=== PATIENT | female | born 1935 | race Caucasian/White ===

== ENCOUNTER 2024-02-23 02:59 | Inpatient (IN) | payer OTHER, MEDICARE ==
[2024-02-23] MEDS ORDERED: ACETAMINOPHEN 325 MG TABLET (FP) ONE ×2 (04:00→04:05)
[2024-02-23] MEDS ORDERED: LIDOCAINE 4% PATCH TP ONE (04:01)
[2024-02-23] MEDS: LIDOCAINE 4% PATCH TP ONE (04:06)
[2024-02-23] MEDS: ACETAMINOPHEN 500 MG TABLET (FP) PO ONE (04:06)
[2024-02-23 04:47] LABS: HEMATOCRIT 39.9 % (32.4-45.2); HEMOGLOBIN 13.7 GM/dL (10.7-15.3); MCH 30.3 pg (25.7-33.7); MCHC 34.3 g/dl (32.0-36.0); MEAN CELL VOLUME 88.3 fl (80-96); MEAN PLT VOLUME 9.5 fl (7.5-11.1); PLATELET COUNT 101 10^3/uL (134-434); RBC 4.52 M/mm3 (3.60-5.2); RDW 14.2 % (11.6-15.6); WHITE BLOOD COUNT 8.4 K/mm3 (4.0-10.0)
[2024-02-23 05:03] LABS: POTASSIUM 4.4 mmol/L (3.5-5.1)
[2024-02-23 05:05] LABS: ALBUMIN 3.9 g/dl (3.4-5.0); BLOOD UREA NITROGEN 18.7 mg/dL (7-18); CALCIUM 9.9 mg/dL (8.5-10.1)
[2024-02-23 05:08] LABS: CREATININE 0.8 mg/dL (0.55-1.3)
[2024-02-23 05:10] LABS: TOT PROT 7.2 g/dl (6.4-8.2)
[2024-02-23] MEDS: VALSARTAN 80 MG TABLET PO ONE (05:43)
[2024-02-23] MEDS: LIDOCAINE PATCH REMOVAL MC ONE (05:43)
[2024-02-23] MEDS ORDERED: VALSARTAN 80 MG TABLET ONE (05:50)
[2024-02-23 06:36] LABS: ANISOCYTOSIS 3+; MACROCYTOSIS 0; OVALOCYTE 1+
[2024-02-23] MEDS: LOSARTAN POTASSIUM 50 MG TABLET PO SCH (10:37)
[2024-02-23] MEDS: ASPIRIN COATED 81 MG TABLET.EC PO SCH (10:37)
[2024-02-23] MEDS: ATENOLOL 25 MG TABLET (FP) PO SCH (10:37)
[2024-02-23] MEDS: SODIUM CHLORIDE 1,000 ML IV SCH (10:38)
[2024-02-23 12:12] VITALS: BMI 21.4
[2024-02-23 14:59] LABS: EPI CELLS 3 /uL (0-25.1); HYALINE CASTS 0 /uL (0-3.1); PH,URINE 8.5 (5.0-8.0); URINE APPEARANCE TURBID; URINE BACTERIA >9,000 /uL (0-1359); URINE BILIRUBIN NEGATIVE (NEGATIVE); URINE COLOR YELLOW; URINE GLUCOSE (UA) NEGATIVE (NEGATIVE); URINE KETONE NEGATIVE (NEGATIVE); URINE LEUK ESTERASE 3+ (NEGATIVE); URINE NITRITE POSITIVE (NEGATIVE); URINE PROTEIN 2+ (NEGATIVE); URINE RBC 42 /uL (0-23.9); URINE UROBILINOGEN 0.2 mg/dL (0.2-1.0); URINE WBC 1208 /uL (0-25.8)
[2024-02-23] MEDS: ATENOLOL 25 MG TABLET (FP) PO STA (16:35)
[2024-02-23] MEDS: CEFTRIAXONE 1 GM in DEXTROSE 5%-WATER - 50 ML IVPB SCH (19:51)
[2024-02-24] MEDS ORDERED: METOPROLOL TARTRATE 5 MG/5 ML VIAL ONE ×2 (03:32→03:40)
[2024-02-24] MEDS: MAGNESIUM SULF 50% (8.12 MEQ/2 ML-1 GM VIAL) IVPB ONE (04:05)
[2024-02-24] MEDS: dilTIAZem HCL 50 MG/10 ML - 10 ML VIAL IVPUSH ONE ×2 (04:05→05:14)
[2024-02-24] MEDS ORDERED: dilTIAZem HCL 50 MG/10 ML - 10 ML VIAL IVPUSH PRN (04:17)
[2024-02-24] MEDS: LORazepam 2 MG/ML SDV VIAL IVPUSH ONE (04:41)
[2024-02-24] MEDS: LACTATED RINGERS SOLUTION 1,000 ML/1,000 ML INFUS.BAG IV STA (04:42)
[2024-02-24] MEDS: ENOXAPARIN NA (PORCINE) 60 MG/0.6 ML DISP.SYRIN SQ SCH (04:45)
[2024-02-24] MEDS: METOPROLOL TARTRATE 5 MG/5 ML VIAL IVPUSH ONE (05:14)
[2024-02-24] MEDS: ADENOSINE 6 MG/2 ML VIAL IVPUSH ONE ×2 (05:17)
[2024-02-24 05:30] LABS: HEMATOCRIT 36.6 % (32.4-45.2); MCH 29.3 pg (25.7-33.7); MCHC 32.9 g/dl (32.0-36.0); MEAN CELL VOLUME 89.1 fl (80-96); MEAN PLT VOLUME 9.1 fl (7.5-11.1); PLATELET COUNT 83 10^3/uL (134-434); RDW 14.2 % (11.6-15.6); WHITE BLOOD COUNT 9.5 K/mm3 (4.0-10.0)
[2024-02-24] MEDS: ACETAMINOPHEN 1000 MG/100 ML BAG IVPB PRN (06:06)
[2024-02-24 06:08] LABS: POTASSIUM 3.4 mmol/L (3.5-5.1)
[2024-02-24 06:10] LABS: CALCIUM 8.5 mg/dL (8.5-10.1); MAGNESIUM 2.3 mg/dL (1.8-2.4)
[2024-02-24 06:11] LABS: BLOOD UREA NITROGEN 19.2 mg/dL (7-18)
[2024-02-24 06:14] LABS: CREATININE 0.8 mg/dL (0.55-1.3); PHOSPHOROUS 2.3 mg/dL (2.5-4.9)
[2024-02-24 06:15] LABS: BILIRUBIN,TOTAL 1.1 mg/dL (0.2-1); TOT PROT 5.9 g/dl (6.4-8.2)
[2024-02-24 06:17] LABS: ALBUMIN 3.1 g/dl (3.4-5.0)
[2024-02-24] MEDS: DIGOXIN 0.5 MG/2 ML AMPUL IVPUSH ONE (14:12)
[2024-02-24] MEDS ORDERED: DIGOXIN 0.5 MG/2 ML AMPUL IVPUSH PRN ×2 (15:04→15:31)
[2024-02-24] MEDS ORDERED: DIGOXIN 0.5 MG/2 ML AMPUL IVPUSH SCH ×3 (15:45→18:15)
[2024-02-24] MEDS: DIGOXIN 0.5 MG/2 ML AMPUL IVPUSH SCH ×2 (18:11→18:19)
[2024-02-25 08:57] LABS: HEMATOCRIT 36.2 % (32.4-45.2); HEMOGLOBIN 12.1 GM/dL (10.7-15.3); MCH 29.7 pg (25.7-33.7); MCHC 33.3 g/dl (32.0-36.0); MEAN CELL VOLUME 89.2 fl (80-96); MEAN PLT VOLUME 9.5 fl (7.5-11.1); PLATELET COUNT 84 10^3/uL (134-434); RBC 4.06 M/mm3 (3.60-5.2); RDW 13.9 % (11.6-15.6); WHITE BLOOD COUNT 9.5 K/mm3 (4.0-10.0)
[2024-02-25 09:37] LABS: ALBUMIN 3.1 g/dl (3.4-5.0); BLOOD UREA NITROGEN 20.6 mg/dL (7-18); CALCIUM 8.6 mg/dL (8.5-10.1); CREATININE 0.7 mg/dL (0.55-1.3); POTASSIUM 3.5 mmol/L (3.5-5.1)
[2024-02-25] MEDS: METOPROLOL TARTRATE 25 MG TABLET (FP) PO SCH (09:40)
[2024-02-25] MEDS: DIGOXIN 0.125 MG TABLET PO SCH (09:40)
[2024-02-25] MEDS: CEFTRIAXONE 1 GM in DEXTROSE 5%-WATER - 50 ML IVPB SCH (09:40)
[2024-02-25 10:13] LABS: ANISOCYTOSIS 0; HELMET CELLS 0; HOWELL-JOLLY BODIES 0; MACROCYTOSIS 0; OVALOCYTE 0; ROULEAU 0; SICKELED CELLS 0; TARGET CELLS 0; TEAR DROP CELLS 0; TOXIC GRANULATION 0
[2024-02-25] MEDS: ACETAMINOPHEN 325 MG TABLET (FP) PO PRN (17:28)
[2024-02-25] MEDS: POTASSIUM CHLORIDE ORAL LIQUID 20 MEQ/15 ML PO ONE (17:47)
[2024-02-25] MEDS: ERTAPENEM SODIUM 0.5 GM in SODIUM CHLORIDE 50 ML IVPB SCH (19:47)
[2024-02-26 07:11] LABS: HEMATOCRIT 36.4 % (32.4-45.2); HEMOGLOBIN 12.3 GM/dL (10.7-15.3); MCH 29.9 pg (25.7-33.7); MCHC 33.7 g/dl (32.0-36.0); MEAN CELL VOLUME 88.7 fl (80-96); MEAN PLT VOLUME 9.6 fl (7.5-11.1); PLATELET COUNT 88 10^3/uL (134-434); RBC 4.11 M/mm3 (3.60-5.2); RDW 14.4 % (11.6-15.6); WHITE BLOOD COUNT 6.7 K/mm3 (4.0-10.0)
[2024-02-26 07:24] LABS: POTASSIUM 3.1 mmol/L (3.5-5.1)
[2024-02-26 07:43] LABS: ALBUMIN 3.2 g/dl (3.4-5.0); BLOOD UREA NITROGEN 16.8 mg/dL (7-18); CALCIUM 8.5 mg/dL (8.5-10.1)
[2024-02-26 07:46] LABS: CREATININE 0.6 mg/dL (0.55-1.3)
[2024-02-26 07:47] LABS: TOT PROT 6.2 g/dl (6.4-8.2)
[2024-02-26 07:50] LABS: BILIRUBIN,TOTAL 0.8 mg/dL (0.2-1)
[2024-02-26] MEDS: METOPROLOL TARTRATE 5 MG/5 ML VIAL IVPUSH PRN (17:48)
[2024-02-26] MEDS: METOPROLOL TARTRATE 25 MG TABLET (FP) PO ONE (18:41)
[2024-02-26 19:49] VITALS: RESP 18
[2024-02-26] MEDS: METOPROLOL TARTRATE 50 MG TABLET (FP) PO SCH (21:04)
[2024-02-27] MEDS: APIXABAN 2.5 MG TABLET PO SCH (09:22)
[2024-02-27] MEDS: NITROFURANTOIN MACROCRYSTAL 50 MG CAPSULE (FP) PO SCH (13:14)
[2024-02-28] MEDS: TAMSULOSIN HCL 0.4 MG CAP PO SCH (07:57)
[2024-02-28 18:38] VITALS: BP 130/69; PULSE 70; TEMP 97.9
== END 2024-02-28 18:53 | DRG 309 ==
LOC: JER 02:59 → JERBED 06:42 → J4W 09:58 → OBSVTOIN 02-24 10:13 → J4W 02-25 18:39
PROVIDERS: ADMIT Family Medicine; ATTEND Family Medicine
DX: I48.91 Unspecified atrial fibrillation (principal); N39.0 Urinary tract infection, site not specified; Z16.12 Extended spectrum beta lactamase (ESBL) resistance; R55 Syncope and collapse; I25.10 Atherosclerotic heart disease of native coronary artery without angina pectoris; I10 Essential (primary) hypertension
CPT/HCPCS: 36415; 70450-TC; 70551-TC; 71045-TC-FY; 72125-TC; 72170-TC-FY; 73502-TC-LT-FY; 73552-TC-LT-FY; 73560-TC-LT-FY; 73590-TC-LT-FY; 80053; 81003; 82550; 82607; 83735; 84100; 84443; 84484; 85025; 85027; 87040; 87086; 87186; 87635; 93005; 93010; 93306-TC; 97116-GP; 99285-25; G0378; J0131

== ENCOUNTER 2024-05-23 22:15 | Inpatient (IN) | payer OTHER, MEDICARE ==
[2024-05-23 22:24] VITALS: BMI 20.1
[2024-05-23 22:55] LABS: HEMATOCRIT 39.2 % (32.4-45.2); HEMOGLOBIN 13.4 GM/dL (10.7-15.3); MCH 29.4 pg (25.7-33.7); MCHC 34.1 g/dl (32.0-36.0); MEAN PLT VOLUME 9.1 fl (7.5-11.1); PLATELET COUNT 168 10^3/uL (134-434); RBC 4.56 M/mm3 (3.60-5.2); RDW 15.2 % (11.6-15.6); WHITE BLOOD COUNT 11.2 K/mm3 (4.0-10.0)
[2024-05-23] MEDS ORDERED: METOPROLOL TARTRATE 5 MG/5 ML VIAL ONE (22:58)
[2024-05-23] MEDS: METOPROLOL TARTRATE 5 MG/5 ML VIAL IVPUSH ONE (23:00)
[2024-05-23 23:01] LABS: INR 1.28 (0.83-1.09); PROTHROMBIN TIME (PATIENT) 14.4 SEC (9.7-13.0)
[2024-05-23 23:04] LABS: ACTIVATED PTT 32.7 SECONDS (25.2-36.5)
[2024-05-23] MEDS: SODIUM CHLORIDE 0.9% 500 ML INFUS.BAG IV ONE (23:10)
[2024-05-23 23:18] LABS: ALBUMIN 2.8 g/dl (3.4-5.0); BLOOD UREA NITROGEN 20.7 mg/dL (7-18); CALCIUM 8.8 mg/dL (8.5-10.1)
[2024-05-23 23:22] LABS: CREATININE 0.7 mg/dL (0.55-1.3)
[2024-05-23 23:23] LABS: BILIRUBIN,TOTAL 0.6 mg/dL (0.2-1); TOT PROT 6.8 g/dl (6.4-8.2)
[2024-05-23 23:27] LABS: ANISOCYTOSIS 1+; MACROCYTOSIS 1+; TARGET CELLS 1+
[2024-05-23] MEDS ORDERED: ACETAMINOPHEN INJECTION 100 ML IVPB ONE (23:27)
[2024-05-23] MEDS: ACETAMINOPHEN 1000 MG/100 ML BAG IVPB ONE (23:48)
[2024-05-23 23:52] LABS: EPI CELLS 18 /uL (0-25.1); HYALINE CASTS 5 /uL (0-3.1); URINE APPEARANCE CLOUDY; URINE BACTERIA >9,000 /uL (0-1359); URINE BILIRUBIN 1+ (NEGATIVE); URINE COLOR DK YELLOW; URINE GLUCOSE (UA) NEGATIVE (NEGATIVE); URINE KETONE TRACE (NEGATIVE); URINE LEUK ESTERASE 1+ (NEGATIVE); URINE NITRITE NEGATIVE (NEGATIVE); URINE PROTEIN 1+ (NEGATIVE); URINE WBC 128 /uL (0-25.8)
[2024-05-24] MEDS ORDERED: METOPROLOL TARTRATE 5 MG/5 ML VIAL ONE (00:10)
[2024-05-24] MEDS: METOPROLOL TARTRATE 5 MG/5 ML VIAL IVPUSH ONE (00:20)
[2024-05-24] MEDS: SODIUM CHLORIDE 0.9% 500 ML INFUS.BAG IV ONE ×3 (00:22→03:05)
[2024-05-24] MEDS ORDERED: PIPERACILLIN/TAZOB 3.375 GM 3.375 GM/50 ML BAG IVPB ONE (00:45)
[2024-05-24] MEDS: PIPERACILLIN/TAZOB 3.375 GM 3.375 GM in DEXTROSE 5%-WATER - 50 ML IVPB ONE (01:06)
[2024-05-24] MEDS: DEXTROSE 5%-0.45% SALINE 1,000 ML IV SCH ×2 (04:43→09:16)
[2024-05-24] MEDS ORDERED: PIPERACILLIN/TAZOB 2.25 GM 2.25 GM in DEXTROSE 5%-WATER - 50 ML IVPB SCH (09:00)
[2024-05-24] MEDS: APIXABAN 2.5 MG TABLET PO SCH (09:16)
[2024-05-24] MEDS: PIPERACILLIN/TAZOB 3.375 GM 3.375 GM in DEXTROSE 5%-WATER - 50 ML IVPB SCH ×2 (09:17→15:32)
[2024-05-24 11:16] LABS: BASO % 0.2 % (0-2.0); EOS % 0.1 % (0-4.5); HEMATOCRIT 37.7 % (32.4-45.2); HEMOGLOBIN 12.6 GM/dL (10.7-15.3); LYMPH % 20.6 % (8-40); MCHC 33.5 g/dl (32.0-36.0); MEAN CELL VOLUME 86.7 fl (80-96); MEAN PLT VOLUME 9.2 fl (7.5-11.1); MONO % 16.6 % (3.8-10.2); NEUT % 62.5 % (42.8-82.8); PLATELET COUNT 141 10^3/uL (134-434); RBC 4.34 M/mm3 (3.60-5.2); WHITE BLOOD COUNT 6.7 K/mm3 (4.0-10.0)
[2024-05-24 11:27] LABS: POTASSIUM 3.7 mmol/L (3.5-5.1)
[2024-05-24 11:34] LABS: BLOOD UREA NITROGEN 14.4 mg/dL (7-18); CALCIUM 8.3 mg/dL (8.5-10.1); MAGNESIUM 1.8 mg/dL (1.8-2.4)
[2024-05-24 11:38] LABS: CREATININE 0.6 mg/dL (0.55-1.3); PHOSPHOROUS 2.4 mg/dL (2.5-4.9)
[2024-05-24] MEDS: ERTAPENEM SODIUM 1 GM in SODIUM CHLORIDE 50 ML IVPB SCH (15:30)
[2024-05-26 07:53] LABS: POTASSIUM 3.5 mmol/L (3.5-5.1)
[2024-05-26 07:57] LABS: ALBUMIN 2.5 g/dl (3.4-5.0); BLOOD UREA NITROGEN 4.7 mg/dL (7-18); MAGNESIUM 1.7 mg/dL (1.8-2.4)
[2024-05-26 07:59] LABS: CREATININE 0.4 mg/dL (0.55-1.3)
[2024-05-26 08:01] LABS: BILIRUBIN,TOTAL 0.6 mg/dL (0.2-1); TOT PROT 5.9 g/dl (6.4-8.2)
[2024-05-26] MEDS: metoPROLOL SUCCINATE 25 MG TAB.SR.24H (FP) PO SCH (11:24)
[2024-05-26] MEDS: MAGNESIUM SULFATE IN WATER 2 GM/50 ML IVPB IVPB ONE (11:27)
[2024-05-26] MEDS: POTASSIUM PHOSPHATE 15 MM in DEXTROSE 5%-WATER - 250 ML IVPB ONE (11:57)
[2024-05-26] MEDS ORDERED: ACETAMINOPHEN 325 MG TABLET (FP) PO PRN (17:20)
[2024-05-26 23:09] VITALS: RESP 18
[2024-05-27 09:23] LABS: HEMOGLOBIN 13.2 GM/dL (10.7-15.3); MCH 29.4 pg (25.7-33.7); MCHC 34.7 g/dl (32.0-36.0); MEAN CELL VOLUME 84.7 fl (80-96); PLATELET COUNT 161 10^3/uL (134-434); RBC 4.49 M/mm3 (3.60-5.2); RDW 14.6 % (11.6-15.6); WHITE BLOOD COUNT 8.3 K/mm3 (4.0-10.0)
[2024-05-27 09:45] LABS: CHLORIDE 99 mmol/L (98-107); SODIUM 131 mmol/L (136-145)
[2024-05-27 09:47] LABS: ALBUMIN 2.5 g/dl (3.4-5.0); BLOOD UREA NITROGEN 6.8 mg/dL (7-18); CO2 26 mmol/L (21-32); GLUCOSE,RANDOM 107 mg/dL (74-106); MAGNESIUM 1.8 mg/dL (1.8-2.4)
[2024-05-27 09:50] LABS: CREATININE 0.5 mg/dL (0.55-1.3); SGOT/AST 35 U/L (15-37); SGPT/ALT 16 U/L (13-61)
[2024-05-27 09:51] LABS: BILIRUBIN,TOTAL 0.7 mg/dL (0.2-1)
[2024-05-27 09:52] LABS: TOT PROT 6.4 g/dl (6.4-8.2)
[2024-05-27 10:44] LABS: ALK PHOS < 10 U/L (45-117); ANION GAP 6 mmol/L (4-13); CALCIUM < 5.0 mg/dL (8.5-10.1); POTASSIUM > 10.0 mmol/L (3.5-5.1)
[2024-05-27 12:38] LABS: POTASSIUM 3.8 mmol/L (3.5-5.1)
[2024-05-27 12:42] LABS: CALCIUM 7.9 mg/dL (8.5-10.1)
[2024-05-27 12:43] LABS: BLOOD UREA NITROGEN 8.4 mg/dL (7-18)
[2024-05-27 12:46] LABS: CREATININE 0.4 mg/dL (0.55-1.3)
[2024-05-27] MEDS: SODIUM ZIRCONIUM CYCLOSILICATE (LOKELMA) 5 GM PACKET PO SCH (13:26)
[2024-05-28] MEDS: ACETAMINOPHEN 325 MG TABLET (FP) PO PRN (00:36)
[2024-05-28] MEDS: METOPROLOL TARTRATE 5 MG/5 ML VIAL IVPUSH PRN (02:51)
[2024-05-28] MEDS: metoPROLOL SUCCINATE 25 MG TAB.SR.24H (FP) PO SCH (11:11)
[2024-05-28 14:38] VITALS: BP 115/78; PULSE 91; TEMP 98.6
[2024-05-28] MEDS: LIDOCAINE 5% TOPICAL PATCH TP SCH (16:53)
[2024-05-28] MEDS ORDERED: LIDOCAINE PATCH REMOVAL MC SCH (22:00)
== END 2024-05-28 16:58 | DRG 690 ==
LOC: JER 22:15 → JERBED 23:51 → J4S 05-24 06:12 → OBSVTOIN 05-24 11:19
PROVIDERS: ADMIT Internal Medicine; ATTEND Family Medicine
DX: N39.0 Urinary tract infection, site not specified (principal); B96.20 Unspecified Escherichia coli [E. coli] as the cause of diseases classified elsewhere; I95.9 Hypotension, unspecified; I10 Essential (primary) hypertension; E86.0 Dehydration; I48.0 Paroxysmal atrial fibrillation; R00.0 Tachycardia, unspecified; F03.90 Unspecified dementia, unspecified severity, without behavioral disturbance, psychotic disturbance, mood disturbance, and anxiety; E83.42 Hypomagnesemia; E88.09 Other disorders of plasma-protein metabolism, not elsewhere classified; R53.83 Other fatigue; M19.90 Unspecified osteoarthritis, unspecified site
CPT/HCPCS: 0241U-QW; 36415; 70450-TC; 71045-TC-FY; 80048; 80053; 81003; 83605; 83735; 84100; 84443; 84484; 85025; 85027; 85610; 85730; 87040; 87086; 87186; 93005; 93010; 93971; 97161-GP; 99285-25; G0378; J0131

== ENCOUNTER 2024-09-01 14:09 | Inpatient (IN) | payer OTHER, MEDICARE ==
[2024-09-01] MEDS ORDERED: dilTIAZem HCL 125 MG/25 ML - 25 ML VIAL ONE (14:35)
[2024-09-01] MEDS: dilTIAZem HCL 50 MG/10 ML - 10 ML VIAL IVPUSH ONE (14:39)
[2024-09-01] MEDS ORDERED: SODIUM CHLORIDE 0.9% 500 ML INFUS.BAG IV ONE (14:40)
[2024-09-01] MEDS: SODIUM CHLORIDE 0.9% 500 ML INFUS.BAG IV ONE (14:50)
[2024-09-01 15:32] LABS: VENOUS BASE EXCESS 1.8 mmol/L (-2-2); VENOUS O2 SATURATION 43.2 % (70-80); VENOUS PH 7.372 (7.310-7.410)
[2024-09-01 15:36] LABS: HEMATOCRIT 38.5 % (32.4-45.2); HEMOGLOBIN 12.9 GM/dL (10.7-15.3); MCH 29.1 pg (25.7-33.7); MCHC 33.4 g/dl (32.0-36.0); MEAN PLT VOLUME 9.4 fl (7.5-11.1); PLATELET COUNT 164 10^3/uL (134-434); RBC 4.43 M/mm3 (3.60-5.2); RDW 17.2 % (11.6-15.6)
[2024-09-01 15:43] LABS: INR 1.35 (0.83-1.09); PROTHROMBIN TIME (PATIENT) 15.4 SEC (9.7-13.0)
[2024-09-01 15:46] LABS: ACTIVATED PTT 31.9 SECONDS (25.2-36.5)
[2024-09-01 15:51] LABS: CALCIUM 9.5 mg/dL (8.5-10.1); POTASSIUM 4.8 mmol/L (3.5-5.1)
[2024-09-01 15:52] LABS: ALBUMIN 2.9 g/dl (3.4-5.0); BLOOD UREA NITROGEN 20.4 mg/dL (7-18)
[2024-09-01 15:54] LABS: CREATININE 0.9 mg/dL (0.55-1.3)
[2024-09-01 15:56] LABS: BILIRUBIN,TOTAL 0.5 mg/dL (0.2-1); TOT PROT 6.5 g/dl (6.4-8.2)
[2024-09-01 15:57] LABS: ANISOCYTOSIS 2+; MACROCYTOSIS 0
[2024-09-01 15:59] LABS: LACTIC ACID 2.9 mmol/L (0.4-2.0)
[2024-09-01 17:25] LABS: POTASSIUM 4.4 mmol/L (3.5-5.1)
[2024-09-01 17:28] LABS: CALCIUM 9.3 mg/dL (8.5-10.1)
[2024-09-01 17:29] LABS: BLOOD UREA NITROGEN 19.6 mg/dL (7-18)
[2024-09-01 17:31] LABS: CREATININE 0.8 mg/dL (0.55-1.3)
[2024-09-01 17:54] LABS: EPI CELLS 16 /uL (0-25.1); HYALINE CASTS 2 /uL (0-3.1); URINE APPEARANCE CLOUDY; URINE BACTERIA 72 /uL (0-1359); URINE BILIRUBIN NEGATIVE (NEGATIVE); URINE COLOR DK YELLOW; URINE GLUCOSE (UA) NEGATIVE (NEGATIVE); URINE KETONE TRACE (NEGATIVE); URINE LEUK ESTERASE 1+ (NEGATIVE); URINE NITRITE NEGATIVE (NEGATIVE); URINE PROTEIN 2+ (NEGATIVE); URINE RBC 16 /uL (0-23.9); URINE WBC 124 /uL (0-25.8)
[2024-09-01 18:03] LABS: MAGNESIUM 2.1 mg/dL (1.8-2.4)
[2024-09-01 18:07] LABS: PHOSPHOROUS 3.2 mg/dL (2.5-4.9)
[2024-09-01 18:38] LABS: URINE CRYSTALS FEW CALCIUM OXALATES /hpf
[2024-09-01] MEDS ORDERED: PIPERACILLIN/TAZOB 2.25 GM 2.25 GM/50 ML BAG IVPB ONE (18:51)
[2024-09-01] MEDS: PIPERACILLIN/TAZOB 2.25 GM 2.25 GM in DEXTROSE 5%-WATER - 50 ML IVPB ONE (18:53)
[2024-09-01] MEDS: APIXABAN 2.5 MG TABLET PO SCH (22:18)
[2024-09-02 01:37] VITALS: BMI 19.4
[2024-09-02 07:29] LABS: HEMATOCRIT 34.2 % (32.4-45.2); HEMOGLOBIN 11.3 GM/dL (10.7-15.3); MCH 28.9 pg (25.7-33.7); MEAN CELL VOLUME 87.4 fl (80-96); MEAN PLT VOLUME 9.2 fl (7.5-11.1); PLATELET COUNT 128 10^3/uL (134-434); RBC 3.91 M/mm3 (3.60-5.2); RDW 16.5 % (11.6-15.6); WHITE BLOOD COUNT 5.1 K/mm3 (4.0-10.0)
[2024-09-02 07:44] LABS: POTASSIUM 3.7 mmol/L (3.5-5.1)
[2024-09-02 07:54] LABS: CALCIUM 8.8 mg/dL (8.5-10.1)
[2024-09-02 07:55] LABS: BLOOD UREA NITROGEN 18.4 mg/dL (7-18)
[2024-09-02 07:57] LABS: CREATININE 0.5 mg/dL (0.55-1.3)
[2024-09-02] MEDS: MEMANTINE HCL 5 MG TABLET (UD) PO SCH ×2 (09:20→14:42)
[2024-09-02 09:46] LABS: ANISOCYTOSIS 2+; MACROCYTOSIS 2+; OVALOCYTE 1+
[2024-09-02] MEDS: MULTIVITAMINS (DAILY MVI) TABLET (FP) PO SCH (17:07)
[2024-09-02] MEDS: AMINO ACIDS/PROTEIN HYDROLYS 30 ML LIQUID.PKT PO SCH (17:08)
[2024-09-02] MEDS: ASCORBIC ACID 500 MG TABLET (FP) PO SCH (21:43)
[2024-09-03] MEDS: CEFTRIAXONE 1 GM in DEXTROSE 5%-WATER - 50 ML IVPB SCH (09:47)
[2024-09-03] MEDS: ERTAPENEM SODIUM 1 GM VIAL IM ONE (20:44)
[2024-09-05] MEDS: VANCOMYCIN 1,000 MG in DEXTROSE 5%-WATER - 250 ML IVPB ONE (08:17)
[2024-09-06 12:17] VITALS: RESP 18
[2024-09-06 15:54] VITALS: BP 113/60; PULSE 85; TEMP 98.4
== END 2024-09-06 18:00 | disposition home or self-care (01) | DRG 308 ==
LOC: JER 14:09 → JERBED 16:41 → OBSVTOIN 17:03 → J4S 22:58
PROVIDERS: ADMIT Internal Medicine; ATTEND Internal Medicine
DX: I48.91 Unspecified atrial fibrillation (principal); L89.153 Pressure ulcer of sacral region, stage 3; Z68.1 Body mass index [BMI] 19.9 or less, adult; N39.0 Urinary tract infection, site not specified; F03.90 Unspecified dementia, unspecified severity, without behavioral disturbance, psychotic disturbance, mood disturbance, and anxiety; I10 Essential (primary) hypertension; I47.10 Supraventricular tachycardia, unspecified; R55 Syncope and collapse; R62.7 Adult failure to thrive; R53.1 Weakness; R13.10 Dysphagia, unspecified; B96.20 Unspecified Escherichia coli [E. coli] as the cause of diseases classified elsewhere
CPT/HCPCS: 0241U-QW; 36415; 71045-TC-FY; 80048; 80053; 81003; 82803; 82962; 83605; 83735; 84100; 84443; 84484; 85025; 85610; 85730; 86850; 86900; 86901; 87040; 87086; 87186; 93005; 93010; 93306-TC; 97161-GP; 99285-25; G0378

== ENCOUNTER 2024-10-07 20:32 | Inpatient (IN) | payer OTHER, MEDICARE ==
[2024-10-07 21:14] LABS: VENOUS BASE EXCESS 1.5 mmol/L (-2-2); VENOUS O2 SATURATION 90.4 % (70-80); VENOUS PCO2 35.8 mmHg (38-52); VENOUS PH 7.461 (7.310-7.410)
[2024-10-07 21:19] LABS: HEMATOCRIT 36.9 % (32.4-45.2); HEMOGLOBIN 12.2 GM/dL (10.7-15.3); MEAN PLT VOLUME 8.8 fl (7.5-11.1); PLATELET COUNT 274 10^3/uL (134-434); RBC 4.34 M/mm3 (3.60-5.2); RDW 15.9 % (11.6-15.6); WHITE BLOOD COUNT 11.9 K/mm3 (4.0-10.0)
[2024-10-07 21:26] LABS: INR 1.21 (0.83-1.09); PROTHROMBIN TIME (PATIENT) 13.8 SEC (9.7-13.0)
[2024-10-07 21:28] LABS: ACTIVATED PTT 30.8 SECONDS (25.2-36.5)
[2024-10-07] MEDS: SODIUM CHLORIDE 0.9% 500 ML INFUS.BAG IV ONE (21:32)
[2024-10-07 21:38] LABS: CALCIUM 9.2 mg/dL (8.5-10.1)
[2024-10-07 21:39] LABS: ALBUMIN 2.5 g/dl (3.4-5.0); BLOOD UREA NITROGEN 19.6 mg/dL (7-18)
[2024-10-07 21:42] LABS: CREATININE 0.5 mg/dL (0.55-1.3)
[2024-10-07 21:44] LABS: BILIRUBIN,TOTAL 0.4 mg/dL (0.2-1)
[2024-10-07] MEDS ORDERED: VANCOMYCIN 1 GRAM (PRE-DOCKED) 1,000 MG/250 ML BAG IVPB ONE (21:49)
[2024-10-07] MEDS ORDERED: PIPERACILLIN/TAZOB 4.5 GM 4.5 GM/100 ML BAG IVPB ONE (21:49)
[2024-10-07 21:51] LABS: ANISOCYTOSIS 2+; MACROCYTOSIS 0; OVALOCYTE 1+
[2024-10-07 21:56] LABS: EPI CELLS >36 /uL (0-25.1); HYALINE CASTS 88 /uL (0-3.1); URINE APPEARANCE TURBID; URINE BILIRUBIN NEGATIVE (NEGATIVE); URINE COLOR DK YELLOW; URINE GLUCOSE (UA) NEGATIVE (NEGATIVE); URINE KETONE TRACE (NEGATIVE); URINE LEUK ESTERASE NEGATIVE (NEGATIVE); URINE NITRITE NEGATIVE (NEGATIVE); URINE PROTEIN 1+ (NEGATIVE); URINE RBC 414 /uL (0-23.9); URINE WBC 34 /uL (0-25.8)
[2024-10-07] MEDS: PIPERACILLIN/TAZOB 4.5 GM 4.5 GM in DEXTROSE 5%-WATER 100 ML IVPB ONE (22:04)
[2024-10-07] MEDS ORDERED: METOPROLOL TARTRATE 5 MG/5 ML VIAL ONE (22:11)
[2024-10-07] MEDS: METOPROLOL TARTRATE 5 MG/5 ML VIAL IVPUSH ONE (22:18)
[2024-10-07] MEDS: VANCOMYCIN 1,000 MG in DEXTROSE 5%-WATER - 250 ML IVPB ONE (22:35)
[2024-10-07 23:40] LABS: URINE BACTERIA 39.6 /uL (0-1359)
[2024-10-07] MEDS ORDERED: METOPROLOL TARTRATE 25 MG TABLET (FP) ONE (23:51)
[2024-10-08] MEDS: METOPROLOL TARTRATE 25 MG TABLET (FP) PO ONE
[2024-10-08] MEDS ORDERED: SODIUM CHLORIDE 500 ML IV STA (02:41)
[2024-10-08] MEDS ORDERED: DEXTROSE 5%-0.45% SALINE 1,000 ML IV SCH (03:45)
[2024-10-08] MEDS: SODIUM CHLORIDE 250 ML IV STA (04:31)
[2024-10-08] MEDS: SODIUM CHLORIDE 1,000 ML IV SCH (04:31)
[2024-10-08] MEDS: PIPERACILLIN/TAZOB 4.5 GM 4.5 GM/100 ML BAG IVPB SCH (04:32)
[2024-10-08 07:57] LABS: HEMATOCRIT 32.7 % (32.4-45.2); HEMOGLOBIN 10.8 GM/dL (10.7-15.3); MCH 28.6 pg (25.7-33.7); MCHC 33.1 g/dl (32.0-36.0); MEAN CELL VOLUME 86.5 fl (80-96); MEAN PLT VOLUME 8.5 fl (7.5-11.1); PLATELET COUNT 201 10^3/uL (134-434); RBC 3.78 M/mm3 (3.60-5.2); RDW 15.8 % (11.6-15.6); WHITE BLOOD COUNT 8.5 K/mm3 (4.0-10.0)
[2024-10-08 08:15] LABS: POTASSIUM 3.9 mmol/L (3.5-5.1)
[2024-10-08 08:17] LABS: CALCIUM 8.1 mg/dL (8.5-10.1)
[2024-10-08 08:18] LABS: ALBUMIN 2.2 g/dl (3.4-5.0); BLOOD UREA NITROGEN 13.9 mg/dL (7-18)
[2024-10-08 08:21] LABS: CREATININE 0.5 mg/dL (0.55-1.3)
[2024-10-08 08:23] LABS: BILIRUBIN,TOTAL 0.6 mg/dL (0.2-1); TOT PROT 5.1 g/dl (6.4-8.2)
[2024-10-08 10:21] LABS: ANISOCYTOSIS 1+; MACROCYTOSIS 1+
[2024-10-08] MEDS: ASCORBIC ACID 500 MG TABLET (FP) PO SCH (12:04)
[2024-10-08] MEDS: MULTIVITAMINS (DAILY MVI) TABLET (FP) PO SCH (12:04)
[2024-10-08] MEDS: APIXABAN 2.5 MG TABLET PO SCH (12:04)
[2024-10-08] MEDS: LIDOCAINE 5% TOPICAL PATCH TP SCH (12:04)
[2024-10-08] MEDS: SODIUM CHLORIDE 0.45%/POT 20 MEQ/1,000 ML INFUS.BAG IV SCH (17:55)
[2024-10-08] MEDS: VANCOMYCIN 500 MG in DEXTROSE 5%-WATER 100 ML IVPB SCH (21:16)
[2024-10-08] MEDS ORDERED: VANCOMYCIN 500 MG in DEXTROSE 5%-WATER - 100 ML IVPB SCH (22:00)
[2024-10-08] MEDS: LIDOCAINE PATCH REMOVAL MC SCH (23:23)
[2024-10-09] MEDS: PIPERACILLIN/TAZOB 3.375 GM 50 ML IVPB SCH (01:36)
[2024-10-09 10:26] LABS: ALBUMIN 2.4 g/dl (3.4-5.0); CALCIUM 8.7 mg/dL (8.5-10.1)
[2024-10-09 10:27] LABS: BLOOD UREA NITROGEN 8.5 mg/dL (7-18)
[2024-10-09 10:30] LABS: CREATININE 0.5 mg/dL (0.55-1.3)
[2024-10-09 10:31] LABS: BILIRUBIN,TOTAL 0.6 mg/dL (0.2-1); TOT PROT 5.9 g/dl (6.4-8.2)
[2024-10-09 11:35] LABS: BASO % 0.5 % (0-2.0); EOS % 0.1 % (0-4.5); HEMATOCRIT 36.8 % (32.4-45.2); MCH 28.4 pg (25.7-33.7); MCHC 32.7 g/dl (32.0-36.0); MEAN CELL VOLUME 86.8 fl (80-96); MEAN PLT VOLUME 8.6 fl (7.5-11.1); MONO % 15.9 % (3.8-10.2); NEUT % 64.5 % (42.8-82.8); PLATELET COUNT 207 10^3/uL (134-434); RBC 4.24 M/mm3 (3.60-5.2); RDW 16.2 % (11.6-15.6)
[2024-10-09] MEDS: PIPERACILLIN/TAZOB 4.5 GM 4.5 GM in DEXTROSE 5%-WATER 100 ML IVPB SCH (17:26)
[2024-10-11 00:25] VITALS: BMI 16.9
[2024-10-11] MEDS: METOPROLOL TARTRATE 5 MG/5 ML VIAL IVPUSH PRN (00:41)
[2024-10-11] MEDS: METOPROLOL TARTRATE 5 MG/5 ML VIAL IVPUSH ONE (02:35)
[2024-10-11] MEDS: AMIODARONE IN DEXTROSE,ISO-OSM 150 MG/100 ML BAG IVPB ONE (02:46)
[2024-10-11] MEDS: AMIODARONE IN DEXTROSE,ISO-OSM 360 MG/200 ML BAG IV SCH (03:23)
[2024-10-11] MEDS: DIGOXIN 0.5 MG/2 ML AMPUL IVPUSH ONE (04:03)
[2024-10-11] MEDS ORDERED: ACETAMINOPHEN 325 MG TABLET (FP) PO PRN (08:15)
[2024-10-11] MEDS ORDERED: AMIODARONE IN DEXTROSE,ISO-OSM 360 MG/200 ML BAG IV SCH (08:29)
[2024-10-11] MEDS: ZINC SULFATE 220 MG CAPSULE (FP) PO SCH (10:22)
[2024-10-11] MEDS: AMIODARONE HCL 200 MG TABLET PO SCH (10:23)
[2024-10-11 11:57] LABS: MCH 28.3 pg (25.7-33.7); MCHC 33.4 g/dl (32.0-36.0); MEAN PLT VOLUME 8.3 fl (7.5-11.1); PLATELET COUNT 212 10^3/uL (134-434); RBC 3.88 M/mm3 (3.60-5.2); RDW 15.4 % (11.6-15.6); WHITE BLOOD COUNT 8.2 K/mm3 (4.0-10.0)
[2024-10-11 12:09] LABS: POTASSIUM 3.4 mmol/L (3.5-5.1)
[2024-10-11 12:11] LABS: CALCIUM 8.4 mg/dL (8.5-10.1)
[2024-10-11 12:12] LABS: ALBUMIN 2.2 g/dl (3.4-5.0); BLOOD UREA NITROGEN 8.2 mg/dL (7-18)
[2024-10-11 12:15] LABS: CREATININE 0.5 mg/dL (0.55-1.3)
[2024-10-11 12:17] LABS: BILIRUBIN,TOTAL 0.3 mg/dL (0.2-1); TOT PROT 5.2 g/dl (6.4-8.2)
[2024-10-11 12:38] LABS: ANISOCYTOSIS 1+; MACROCYTOSIS 0
[2024-10-13] MEDS: COLLAGENASE CLOSTRIDIUM HIST. 30 GRAMS TUBE TP SCH (15:29)
[2024-10-14] MEDS: AMOX TR/POT CLAV 500MG/125MG TABLETS (FP) PO SCH (09:10)
[2024-10-14 12:52] VITALS: BP 107/64; PULSE 79; RESP 16; TEMP 97.7
[2024-10-15] MEDS ORDERED: AMIODARONE HCL 200 MG TABLET PO SCH (10:00)
== END 2024-10-14 15:21 | disposition home health service (06) | DRG 871 ==
LOC: JER 20:32 → JERBED 10-08 00:40 → OBSVTOIN 10-08 01:07 → J4S 10-08 01:12
PROVIDERS: ADMIT Internal Medicine; ATTEND Family Medicine
DX: A41.9 Sepsis, unspecified organism (principal); E43 Unspecified severe protein-calorie malnutrition; L89.153 Pressure ulcer of sacral region, stage 3; R53.2 Functional quadriplegia; R64 Cachexia; Z68.1 Body mass index [BMI] 19.9 or less, adult; I10 Essential (primary) hypertension; F03.90 Unspecified dementia, unspecified severity, without behavioral disturbance, psychotic disturbance, mood disturbance, and anxiety; I48.91 Unspecified atrial fibrillation; E86.0 Dehydration
CPT/HCPCS: 0241U-QW; 36415; 71045-TC-FY; 80053; 80061; 81003; 82803; 83605; 84443; 84484; 85025; 85610; 85730; 86850; 86900; 86901; 87040; 87086; 87186; 93005; 93010; 99291; G0378; G0480; J0282; J3480